=== PATIENT | female | born 1945 | race Caucasian/White ===

== ENCOUNTER 2017-05-04 12:29 | Emergency (ER) | payer BC, MEDICARE ==
--- NOTE | 2017-05-04 12:49 | Emergency Department Record ---
History of Present Illness - General Chief complaint: Hives Stated complaint: hives Time Seen by Provider: 05/04/17 12:40 Source: Patient Mode of Arrival: Ambulatory Limitations: No limitations - History of Present Illness Initial comments: The patient is here due to an itchy rash for 3 days. The rash is located all over. She denies any new medicines or foods but did start using a new deoderant and wore some new pants prior to the onset. She denies any LANEY, SOB, pain or any trouble swallowing. MD complaint: Rash Onset/Timin -: Days(s) Location: Generalized Severity: Moderate Severity scale (1-10): 2 Quality: Aching Consistency: Constant Treatments Prior to Arrival: Benadryl, OTC topical medication - Related Data Home Medications Medication Instructions Recorded Confirmed Last Taken Citalopram Hydrobromide [Celexa] 40 mg PO DAILY 04/14/15 05/04/17 1 Day Ago ~05/03/17 Furosemide [Lasix] 40 mg PO DAILY 04/14/15 05/04/17 1 Day Ago ~05/03/17 Insulin Glargine,Hum.rec.anlog 84 unit SQ QHS 04/14/15 05/04/17 1 Day Ago [Lantus] ~05/03/17 Insulin Lispro [Humalog] 15 unit SQ TID 04/14/15 05/04/17 1 Day Ago ~05/03/17 Lisinopril 20 mg PO DAILY 04/14/15 05/04/17 1 Day Ago ~05/03/17 Metformin HCl 1,000 mg PO BID 04/14/15 05/04/17 1 Day Ago ~05/03/17 Potassium Bicarbonate/Cit AC 10 meq PO DAILY 04/14/15 05/04/17 1 Day Ago [Effer-K 10 Meq Tablet Eff] ~05/03/17 Triamterene/Hydrochlorothiazid 1 each PO DAILY 04/14/15 05/04/17 1 Day Ago [Triamterene-Hctz 37.5-25 mg Tb] ~05/03/17 Allergies Allergy/AdvReac Type Severity Reaction Status Date / Time codeine Allergy Unknown PT UNSURE Verified 05/04/17 12:39 OF REACTION Travel Screening - Travel/Exposure Within Last 30 Days Have you traveled within the last 30 days?: No - Travel/Exposure Within Last Year Have you traveled outside the [place] in the last year?: No - Additonal Travel Details Have you been exposed to anyone with a communicable illness?: No - Travel Symptoms Symptom Screening: None Review of Systems Constitutional: Denies: Chills, Fever Eyes: Denies: Eye discharge ENT: Denies: Congestion Respiratory: Denies: Cough, Dyspnea Cardiovascular: Denies: Arrhythmia, Chest pain Past Medical History - SOCIAL HISTORY Smoking Status: Never smoker Alcohol Use: None Drug Use: None - RESPIRATORY Hx Respiratory Disorders: No - CARDIOVASCULAR Hx Cardio Disorders: Yes Hx Edema: Yes (BLE) Hx Hypertension: Yes Comment:: high cholesterol - NEURO Hx Neuro Disorders: Yes Hx Dizziness: Yes (Vertigo) - GI Hx GI Disorders: Yes Hx Irritable Bowel: Yes - Hx Genitourinary Disorders: No - ENDOCRINE Hx Endocrine Disorders: Yes Hx Diabetes: Yes (DM2) - MUSCULOSKELETAL Hx Musculoskeletal Disorders: No - PSYCH Hx Psych Problems: Yes Hx Depression: Yes (r/t husbands ) - HEMATOLOGY/ONCOLOGY Hx Hematology/Oncology Disorders: No Family Medical History Any Significant Family History?: Yes Hx Diabetes: Father, Brother/Sister, Grandparents Hx Heart Disease: Mother *Heart Comment: [place] Physical Exam - General General Appearance: Alert, Oriented x3, Cooperative, No acute distress - Head Head exam: Atraumatic, Normocephalic, Normal inspection - Eye Eye exam: Normal appearance, PERRL - ENT Throat exam: Normal inspection. negative: Tonsillar erythema, Tonsillar exudate - Neck Neck exam: Normal inspection, Full ROM. negative: Tenderness - Respiratory Respiratory exam: Normal lung sounds bilaterally. negative: Respiratory distress - Cardiovascular Cardiovascular Exam: Regular rate, Normal rhythm, Normal heart sounds - GI/Abdominal GI/Abdominal exam: Soft, Normal bowel sounds. negative: Tenderness - Extremities Extremities exam: Full ROM, Normal capillary refill. negative: Normal inspection, Calf tenderness, Pedal edema, Tenderness - Neurological Neurological exam: Alert. negative: Motor sensory deficit - Skin Skin exam: Rash, Urticaria (There is a diffuse mild urticarial rash to the body and extremities. The rash is nontender, now warm, and blanches.) Course Vital Signs 05/04/17 12:31 Temperature 97.7 F Pulse Rate 89 Respiratory 16 Rate Blood Pressure 167/89 Pulse Ox 96 - Reevaluation(s) Reevaluation #1: The patient is doing better at this time. Her itching is gone and she is ready for home. I explained to her that we will place the patient her on Benadryl along with Zantac and have her F/U with her PCP in 1-2 days. 05/04/17 13:10 Disposition Disposition: Discharge Clinical Impression: Urticaria Disposition: Home, Self-Care Condition: (1) Good Instructions: Urticaria (ED) Additional Instructions: Please continue the Benadryl 25 mg TID and Zantac 150 mg BID for 5 days. Please see your PCP for recheck in 1-2 days and return to the ER if worse. Forms: Patient Portal Access Time of Disposition: 13:12 Quality - Quality Measures Quality Measures: N/A - Blood Pressure Screening View Details: Yes Does Patient Have Any of the Following: No Blood Pressure Classification: Pre-Hypertensive BP Reading Systolic Measurement: 167 Diastolic Measurement: 89 Screening for High Blood Pressure: < Pre-Hypertensive BP, F/U Documented > [ G8950] Pre-Hypertensive Follow-up Interventions: Referral to alternative/primary care provider.
[2017-05-04] MEDS: DIPHENHYDRAMINE HCL IV 50 MG/ML VIAL IM ONE (12:52)
== END 2017-05-04 13:27 | disposition home or self-care (01) ==
LOC: ER 12:29
CPT/HCPCS: 96372; 99283; J1200

== ENCOUNTER 2017-06-23 19:53 | Observation (INO) | payer BC, MEDICARE ==
[2017-06-23] MEDS ORDERED: ONDANSETRON HCL IV 4 MG/2 ML VIAL IVP ONE (20:14)
[2017-06-23] MEDS ORDERED: PROMETHAZINE HCL 12.5 MG in 0.9 % SODIUM CHLORIDE 100ML 100 ML IVPB ONE (20:38)
[2017-06-23 20:47] LABS: BASO % 0.2 % (0-6); EOS % 0.8 % (0-6); GRAN % 77.5 % (47-80); HEMATOCRIT 45.3 % (35.0-47.0); HEMOGLOBIN 14.5 gm/dl (11.6-16.0); LYMPH % 16.6 % (16-45); MEAN CELL VOLUME 91.3 fl (81-97); MEAN CORPUSCULAR HEMOGLOBIN 29.2 pg (27-33); MEAN PLATELET VOLUME 12.8 fl (7.4-10.4); MONO % 4.9 % (0-9); PLATELET COUNT 234 K/uL (130-400); RED BLOOD COUNT 4.96 M/uL (3.80-5.40); RED CELL DISTRIBUTION WIDTH 13.5 % (11.5-14.5); WHITE BLOOD COUNT W/O DIFF 10.6 K/uL (4.2-12.2)
--- NOTE | 2017-06-23 20:48 | Emergency Department Record ---
History of Present Illness - General Chief Complaint: Dizziness Stated Complaint: DIZZINESS X3DAYS,NAUSEA Time Seen by Provider: 06/23/17 20:07 Source: Patient Mode of Arrival: Wheelchair Limitations: No limitations - History of Present Illness Initial Comments: pt c/o dizziness, room spinning and n/v. she states it feels similar to her previous vertigo but worse. she states she has to hang onto something to walk because she feels like she is going to fall. MD Complaint: Dizziness, Difficulty walking Onset/Timin -: Days(s) Description: Difficulty walking, Lightheadedness, Nausea, Off-balance, Sense of movement Severity: Moderate Improves With: Rest Associated Symptoms: Diaphoresis, Other - Alex Coma Scale Eye Response: (4) Open spontaneously Motor Response: (6) Obeys commands Verbal Response: (5) Oriented Mari Total: 15 - Symptoms of Stroke Symptoms of stroke: Dizziness, Unsteady When Walking, Vertigo - Related Data Allergies Allergy/AdvReac Type Severity Reaction Status Date / Time codeine Allergy Unknown PT UNSURE Verified 05/04/17 12:39 OF REACTION Travel Screening - Travel/Exposure Within Last 30 Days Have you traveled within the last 30 days?: No - Travel/Exposure Within Last Year Have you traveled outside the [place] in the last year?: No - Additonal Travel Details Have you been exposed to anyone with a communicable illness?: No - Travel Symptoms Symptom Screening: None Review of Systems Reviewed: No additional complaints except as noted below Constitutional: Reports: As per HPI. Denies: Chills, Fever, Malaise, Night sweats, Weakness, Weight change Eyes: Reports: As per HPI. Denies: Eye discharge, Eye pain, Photophobia, Vision change ENT: Reports: As per HPI. Denies: Congestion, Dental pain, Ear pain, Epistaxis , Hearing loss, Throat pain Respiratory: Reports: As per HPI. Denies: Cough, Dyspnea, Hemoptysis, Stridor, Wheezes Cardiovascular: Reports: As per HPI. Denies: Arrhythmia, Chest pain, Dyspnea on exertion, Edema, Murmurs, Orthopnea, Palpitations, Paroxysmal nocturnal dyspnea, Rheumatic Fever, Syncope Endocrine: Reports: As per HPI. Denies: Fatigue, Heat or cold intolerance, Polydipsia, Polyuria Gastrointestinal: Reports: As per HPI. Denies: Abdominal pain, Constipation, Diarrhea, Hematemesis, Hematochezia, Melena, Nausea, Vomiting Genitourinary: Reports: As per HPI. Denies: Abnormal menses, Discharge, Dyspareunia, Dysuria, Frequency, Hematuria, Incontinence, Retention, Urgency Musculoskeletal: Reports: As per HPI. Denies: Arthralgia, Back pain, Gout, Joint swelling, Myalgia, Neck pain Skin: Reports: As per HPI. Denies: Bruising, Change in color, Change in hair/ nails, Lesions, Pruritus, Rash Neurological: Reports: As per HPI. Denies: Abnormal gait, Confusion, Headache, Numbness, Paresthesias, Seizure, Tingling, Tremors, Vertigo, Weakness Psychiatric: Reports: As per HPI. Denies: Anxiety, Auditory hallucinations, Depression, Homicidal thoughts, Suicidal thoughts, Visual hallucinations Hematological/Lymphatic: Reports: As per HPI. Denies: Anemia, Blood Clots, Easy bleeding, Easy bruising, Swollen glands Past Medical History - SOCIAL HISTORY Smoking Status: Never smoker Alcohol Use: None Drug Use: None - RESPIRATORY Hx Respiratory Disorders: No - CARDIOVASCULAR Hx Cardio Disorders: Yes Hx Edema: Yes (BLE) Hx Hypertension: Yes Comment:: high cholesterol - NEURO Hx Neuro Disorders: Yes Hx Dizziness: Yes (Vertigo) - GI Hx GI Disorders: Yes Hx Irritable Bowel: Yes - Hx Genitourinary Disorders: No - ENDOCRINE Hx Endocrine Disorders: Yes Hx Diabetes: Yes (DM2) - MUSCULOSKELETAL Hx Musculoskeletal Disorders: No - PSYCH Hx Psych Problems: Yes Hx Depression: Yes (r/t husbands ) - HEMATOLOGY/ONCOLOGY Hx Hematology/Oncology Disorders: No Family Medical History Any Significant Family History?: No Hx Diabetes: Father, Brother/Sister, Grandparents Hx Heart Disease: Mother *Heart Comment: [place] Physical Exam - General General Appearance: Alert, Oriented x3, Cooperative, Mild distress - Head Head exam: Normal inspection - Eye Eye exam: Normal appearance, PERRL, EOMI Pupils: Normal accommodation - ENT ENT exam: Normal exam, Mucous membranes moist, Normal external ear exam, Normal orophraynx Ear exam: Normal external inspection. negative: External canal tenderness Nasal Exam: Normal inspection. negative: Discharge, Sinus tenderness Mouth exam: Normal external inspection, Tongue normal Teeth exam: Normal inspection. negative: Dental caries Throat exam: Normal inspection. negative: Tonsillar erythema, Tonsillar exudate - Neck Neck exam: Normal inspection, Full ROM. negative: Tenderness - Respiratory Respiratory exam: Normal lung sounds bilaterally. negative: Respiratory distress - Cardiovascular Cardiovascular Exam: Regular rate, Normal rhythm, Normal heart sounds - GI/Abdominal GI/Abdominal exam: Soft, Normal bowel sounds. negative: Tenderness - Rectal Rectal exam: Deferred - exam: Deferred - Extremities Extremities exam: Normal inspection, Full ROM, Normal capillary refill. negative: Tenderness - Back Back exam: Reports: Normal inspection, Full ROM. Denies: Muscle spasm, Rash noted, Tenderness - Neurological Neurological exam: Alert, CN II-XII intact, Normal gait, Oriented X3 - Psychiatric Psychiatric exam: Normal affect, Normal mood - Skin Skin exam: Dry, Intact, Normal color, Warm Course Vital Signs 06/23/17 20:03 Temperature 99.0 F Pulse Rate 91 H Respiratory 24 Rate Pulse Ox 90 L Medical Decision Making - Lab Data Result diagrams: 06/23/17 20:10 06/23/17 20:10 Disposition Disposition: Admit Clinical Impression: Vertigo UTI (urinary tract infection) Qualifiers: Urinary tract infection type: acute cystitis Hematuria presence: without hematuria Qualified Code(s): N30.00 - Acute cystitis without hematuria Hyperglycemia due to type 2 diabetes mellitus Qualifiers: Diabetes mellitus fci insulin use: with recruiting and selection consultant use Qualified Code(s): E11.65 - Type 2 diabetes mellitus with hyperglycemia; Z79.4 - buckshot swage operator (current ) use of insulin; Z79.4 - alf (current) use of insulin; Z79.4 - buckshot swage operator (current) use of insulin; Z79.4 - alf (current) use of insulin Disposition: Still a Patient at [facility] Decision to Admit: Admit from ER Decision to Admit Date: 06/24/17 Decision to Admit Time: 00:48 Forms: Patient Portal Access Quality - Quality Measures Quality Measures: N/A - Blood Pressure Screening Does Patient Have Any of the Following: Active Dx of HTN Blood Pressure Classification: Pre-Hypertensive BP Reading Systolic Measurement: 166 Diastolic Measurement: 82 Screening for High Blood Pressure: < First Hypertensive BP, F/U Documented > [ G8950] First Hypertensive Follow-up Interventions: Follow-up with rescreen GT 1 day and LT 4 weeks.
[2017-06-23 21:04] LABS: BLOOD UREA NITROGEN 15 mg/dL (8-23); CREATININE 0.9 mg/dL (0.5-0.9); EST GLOMERULAR FILTRATION RATE > 60 mL/min; GLUCOSE,RANDOM 404 mg/dL (74-109)
[2017-06-23 21:07] LABS: TROPONIN I < 0.30 ng/mL (0.00-0.300)
[2017-06-23] MEDS ORDERED: 0.9 % SODIUM CHLORIDE 1,000 ML BAG IV ONE (22:03)
[2017-06-23] MEDS ORDERED: HUMULIN R 100 UNIT/ML VIAL SQ ONE ×2 (22:03→23:12)
[2017-06-23 22:21] LABS: URINE APPEARANCE CLEAR; URINE BILIRUBIN NEGATIVE (NEGATIVE); URINE BLOOD NEGATIVE (NEGATIVE); URINE COLOR YELLOW; URINE KETONE TRACE (NEGATIVE); URINE LEUKOCYTE ESTERASE NEGATIVE (NEGATIVE); URINE NITRITE POSITIVE (NEGATIVE); URINE PROTEIN TRACE (NEGATIVE); URINE UROBILINOGEN 0.2 E.U./dL (0.20 - 1.00)
[2017-06-23 22:23] LABS: URINE GLUCOSE (UA) >=1000 mg/dL (NEGATIVE)
[2017-06-23 22:27] LABS: URINE BACTERIA 2+; URINE EPITHELIAL CELLS 0 - 2 (FEW); URINE RBC 0 - 2 (NONE SEEN)
[2017-06-23] MEDS ORDERED: MECLIZINE 25 MG TABLET PO ONE (22:38)
[2017-06-23] MEDS ORDERED: CIPROFLOXACIN LACTATE/D5W 400 MG/200 ML BAG IVPB ONE (22:41)
[2017-06-24] MEDS ORDERED: MECLIZINE 25 MG TABLET PO PRN (01:52)
[2017-06-24] MEDS ORDERED: ACETAMINOPHEN 500 MG TABLET PO PRN (01:52)
[2017-06-24] MEDS ORDERED: FUROSEMIDE 40 MG TABLET PO SCH (01:52)
[2017-06-24] MEDS ORDERED: CIPROFLOXACIN LACTATE/D5W 400 MG/200 ML BAG IVPB SCH (01:52)
--- NOTE | 2017-06-24 06:28 | History & Physical ---
History of Present Illness - Date of Service Date of Service for History & Physical: 06/24/17 - History of Present Illness Admitting Diagnosis: intractable vertigo, vomiting, uti, hyperglycemia w dm History of Present Illness: Ms. Cottrell is 71 y/o female who presents with dizziness, nausea and vomiting which began on Thursday afternoon while she was at home. The patient says the room felt it was spinning but she did not have blurring of vision, headache, fever, chills, diaphoresis, chest pain or loss of consciousness. She is a diabetic and takes Lantus 90 units QHS, Lispro 15 units TIDAC and Metformin 1000mg BID. She did not take her medication over the last 3 days due to the ongoing vomiting. Yesterday she had 3-4 loose non-bloody, watery bowel movements and her dizziness got worse so she decided to come into the ED. On arrival to the ED the patient was noted to be hyperglycemic and to have urinary tract infection. She was started on insulin and empiric IV antibiotics. ECG showed normal sinus rhythm w/o acute ST-T wave abnormalities and CT head w/ o contrast showed small vessel ischemic changes but no acute infarct. On examination this morning the patient reports improvement in symptoms witho no diarrhea, or dizziness. Travel Screening - Travel/Exposure Within Last 30 Days Have you traveled within the last 30 days?: No - Travel/Exposure Within Last Year Have you traveled outside the [place] in the last year?: No - Additonal Travel Details Have you been exposed to anyone with a communicable illness?: No - Travel Symptoms Symptom Screening: Vomiting Review of Systems Constitutional: Reports: As per HPI. Denies: Chills, Fever, Malaise, Night sweats, Weakness, Weight change Eyes: Reports: As per HPI. Denies: Eye discharge, Eye pain, Photophobia, Vision change ENT: Reports: As per HPI. Denies: Congestion, Dental pain, Ear pain, Epistaxis , Hearing loss, Throat pain Respiratory: Reports: As per HPI. Denies: Cough, Dyspnea, Hemoptysis, Stridor, Wheezes Cardiovascular: Reports: As per HPI. Denies: Arrhythmia, Chest pain, Dyspnea on exertion, Edema, Murmurs, Orthopnea, Palpitations, Paroxysmal nocturnal dyspnea, Rheumatic Fever, Syncope Endocrine: Reports: As per HPI. Denies: Fatigue, Heat or cold intolerance, Polydipsia, Polyuria Gastrointestinal: Reports: As per HPI, Diarrhea (3-4 episodes yesterday prior to admission. ), Nausea, Vomiting. Denies: Abdominal pain, Constipation, Hematemesis, Hematochezia, Melena Genitourinary: Reports: As per HPI. Denies: Abnormal menses, Discharge, Dyspareunia, Dysuria, Frequency, Hematuria, Incontinence, Retention, Urgency Musculoskeletal: Reports: As per HPI. Denies: Arthralgia, Back pain, Gout, Joint swelling, Myalgia, Neck pain Skin: Reports: As per HPI. Denies: Bruising, Change in color, Change in hair/ nails, Lesions, Pruritus, Rash Neurological: Reports: As per HPI, Vertigo (pt reports unsteady gait over the past 3 days. ). Denies: Abnormal gait, Confusion, Headache, Numbness, Paresthesias, Seizure, Tingling, Tremors, Weakness Psychiatric: Reports: As per HPI. Denies: Anxiety, Auditory hallucinations, Depression, Homicidal thoughts, Suicidal thoughts, Visual hallucinations Hematological/Lymphatic: Reports: As per HPI. Denies: Anemia, Blood Clots, Easy bleeding, Easy bruising, Swollen glands Past Medical History - SOCIAL HISTORY Smoking Status: Never smoker Alcohol Use: None Drug Use: None - RESPIRATORY Hx Respiratory Disorders: No - CARDIOVASCULAR Hx Cardio Disorders: Yes Hx Edema: Yes (BLE) Hx Hypertension: Yes Comment:: high cholesterol - NEURO Hx Neuro Disorders: Yes Hx Dizziness: Yes (Vertigo) - GI Hx GI Disorders: Yes Hx Irritable Bowel: Yes - Hx Genitourinary Disorders: No - ENDOCRINE Hx Endocrine Disorders: Yes Hx Diabetes: Yes (DM2) - MUSCULOSKELETAL Hx Musculoskeletal Disorders: No - PSYCH Hx Psych Problems: Yes Hx Depression: Yes (r/t husbands ) - HEMATOLOGY/ONCOLOGY Hx Hematology/Oncology Disorders: No Family Medical History Any Significant Family History?: No Hx Diabetes: Father, Brother/Sister, Grandparents Hx Heart Disease: Mother *Heart Comment: [place] [facility] Meds/Allergies - Allergies Allergies: Allergies Allergy/AdvReac Type Severity Reaction Status Date / Time codeine Allergy Unknown PT UNSURE Verified 05/04/17 12:39 OF REACTION - Active Medications Active Medications: Current Medications Acetaminophen (Tylenol 500mg Tab) 1,000 mg PO Q6H PRN PRN Reason: PAIN/TEMP Citalopram Hydrobromide (Celexa) 40 mg PO DAILY [facility] Furosemide (Lasix) 40 mg PO Q48H [facility] Sodium Chloride () 1,000 mls @ 100 mls/hr IV .Q10H PRN PRN Reason: LARGE VOLUME IV Ciprofloxacin Lactate (Cipro) 400 mg in 200 mls @ 200 mls/hr IVPB Q12H [facility] Stop: 06/29/17 01:53 Last Admin: 06/24/17 01:58 Dose: Not Given Insulin Aspart (Novolog Flexpen) 15 unit SQ TID [facility] Insulin Detemir (Levemir Flextouch) 84 unit SQ QHS [facility] Lisinopril (Zestril) 20 mg PO DAILY [facility] Meclizine HCl (Antivert) 25 mg PO Q8H PRN PRN Reason: Dizziness Metformin HCl (Glucophage Ir) 1,000 mg PO BID [facility] Non-Formulary Medication (Potassium Bicarbonate/Cit Ac [Effer-K 10 Meq Tablet Eff]) 10 meq PO DAILY [facility] Triamterene/HCTZ (Dyazide) 1 udcap PO DAILY [facility] Physical Exam - Vital Signs Vital Signs: Vital Signs - Last 24 Hrs Temp Pulse Resp BP Pulse Ox 06/24/17 02:00 98.3 F 75 18 158/90 93 L - General General Appearance: Alert, Oriented x3, Cooperative, Mild distress Limitations: No limitations - Head Head exam: Normal inspection - Eye Eye exam: Normal appearance, PERRL, EOMI Pupils: Normal accommodation - ENT ENT exam: Normal exam, Mucous membranes moist, Normal external ear exam, Normal orophraynx Ear exam: Normal external inspection. negative: External canal tenderness Nasal Exam: Normal inspection. negative: Discharge, Sinus tenderness Mouth exam: Normal external inspection, Tongue normal Teeth exam: Normal inspection. negative: Dental caries Throat exam: Normal inspection. negative: Tonsillar erythema, Tonsillar exudate - Neck Neck exam: Normal inspection, Full ROM. negative: Tenderness - Respiratory Respiratory exam: Normal lung sounds bilaterally. negative: Respiratory distress - Cardiovascular Cardiovascular Exam: Regular rate, Normal rhythm, Normal heart sounds, S3 Peripheral Pulses: 2+: Radial (R), Radial (L), Dorsalis Pedis (R), Dorsalis Pedis (L) - GI/Abdominal GI/Abdominal exam: Soft, Normal bowel sounds. negative: Tenderness - Rectal Rectal exam: Deferred - exam: Deferred - Extremities Extremities exam: Normal inspection, Full ROM, Normal capillary refill. negative: Tenderness - Back Back exam: Reports: Normal inspection, Full ROM. Denies: Muscle spasm, Rash noted, Tenderness - Neurological Neurological exam: Alert, CN II-XII intact, Normal gait, Oriented X3 - Psychiatric Psychiatric exam: Normal affect, Normal mood - Skin Skin exam: Dry, Intact, Normal color, Warm Results - Labs Result Diagrams: 06/23/17 20:10 06/23/17 20:10 VTE H&P Assessment - Risk for VTE Risk for VTE: Yes Risk Level: Moderate Risk Assessment Date: 06/24/17 Risk Assessment Time: 10:18 VTE Orders Placed or Will Be Placed: Yes Plan - Detailed Diagnosis and Plan (1) Dizziness, nonspecific Plan: - Patient presents with dizziness, N/V, diarrhea. -resolved. Probably multifactorial 2/2 medication,infection,hyperglycemia. - CT head w/o contrast: no acute process, ECG: NSR, Qtc is mildly prolonged > 485 - received Nacl 0.9% 1 liter bolus in ED cont fluid repletion with Nacl 0.9% @ 100mL/hr - will d/c antivert, resume BP medications with holding parameters and continue to monitor on telemetry. - Fall precautions/ambulate with assistance Current Visit: Yes Status: Acute Base Code: R42 - DIZZINESS AND GIDDINESS (2) UTI (urinary tract infection) Plan: - UA: + nitrites, no leukocytes, trace ketones, trace proteins - pt on Ciprofloxacin 400mg Q12H, UCX pending. Change to PO medication. Current Visit: Yes Status: Acute Qualifiers: Urinary tract infection type: acute cystitis Hematuria presence: without hematuria Qualified Code(s): N30.00 - Acute cystitis without hematuria Base Code: N39.0 - URINARY TRACT INFECTION, SITE NOT SPECIFIED (3) Hypertension Plan: -current BP 148/86 - pt on Diazyde, Lasix 20mg QD and Lisinopril 20mg at home. - will hold Diayzide for now and increase Lisinopril to 40mg, cont Lasix 20mg. Current Visit: Yes Status: Acute Base Code: I10 - ESSENTIAL (PRIMARY) HYPERTENSION (4) Hyperglycemia due to type 2 diabetes mellitus Plan: - CBG >300 on admission, CBG 213, 2/2 non-compliance and infection. - pt got 7 units regular insulin in the ED, resume home doses of Levemir 84 units, Aspart 15 units TIDAC and Metformin 100mg BID - cont CBG TIDAC, diabetic diet. - foot examination: no ulcers, cruising or skin breakdown. 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 Anticipate d/ c this afternoon w/ home abx if symptoms improve.
--- NOTE | 2017-06-24 07:28 | CT SCAN REPORT ---
EXAM: CT OF THE BRAIN WITHOUT CONTRAST HISTORY: MENTAL STATUS CHANGE. TECHNIQUE: Sequential axial images were obtained from the foramen magnum to the vertex without contrast administration. Comparison: 06/10/13. FINDINGS: There is periventricular small vessel ischemic change. There is mild dilatation of the occipital horns. No large territorial infarct, hemorrhage, mass effect, or midline shift. The orbits, paranasal sinuses and mastoid air cells are normal. No depressed skull fracture. IMPRESSION: PERIVENTRICULAR SMALL VESSEL ISCHEMIC CHANGE. NO LARGE TERRITORIAL INFARCT, HEMORRHAGE, MASS EFFECT OR MIDLINE SHIFT. JOB NUMBER: [id number] [facility]
[2017-06-24] MEDS ORDERED: LISINOPRIL 20 MG TABLET PO SCH (10:00)
[2017-06-24] MEDS ORDERED: [UNRECOGNIZED DRUG - OTHER] PO SCH (10:00)
[2017-06-24] MEDS ORDERED: Non-Formulary MISC (Citalopram Hydrobromide [Celexa] 40 MG) PO SCH (10:00)
[2017-06-24] MEDS ORDERED: INSULIN LISPRO 15 UNIT SQ SCH (10:00)
[2017-06-24] MEDS: METFORMIN 500 MG TABLET PO SCH ×2 (10:17→21:29)
[2017-06-24] MEDS: CITALOPRAM 20 MG TABLET PO SCH (10:18)
[2017-06-24] MEDS: TRIAMTERENE 37.5/HCTZ 25 CAPSULE PO SCH (10:18)
[2017-06-24] MEDS: FUROSEMIDE 40 MG TABLET PO SCH (10:18)
[2017-06-24] MEDS: CIPROFLOXACIN LACTATE/D5W 400 MG/200 ML BAG IVPB SCH ×2 (10:19→21:30)
[2017-06-24] MEDS: NOVOLOG FLEXPEN (INSULIN ASPART) 100 UNITS/ML SQ SCH ×3 (10:19→17:51)
[2017-06-24] MEDS: POTASSIUM CHLORIDE 10 MEQ TAB PO SCH (10:19)
[2017-06-24] MEDS: LISINOPRIL 20 MG TABLET PO SCH (11:06)
[2017-06-24] MEDS: 0.9 % SODIUM CHLORIDE 1000ML 1,000 ML IV PRN ×2 (14:19→23:48)
[2017-06-24] MEDS ORDERED: LEVEMIR FLEXTOUCH 100 UNIT/ML INSULIN PEN SQ SCH (22:00)
[2017-06-24] MEDS ORDERED: INSULIN GLARGINE SQ SCH (22:00)
[2017-06-25] MEDS ORDERED: LEVEMIR FLEXTOUCH 100 UNIT/ML INSULIN PEN SQ SCH (06:01)
[2017-06-25] MEDS: NOVOLOG FLEXPEN (INSULIN ASPART) 100 UNITS/ML SQ SCH ×3 (08:00→17:14)
--- NOTE | 2017-06-25 09:08 | Discharge Summary ---
Providers Date of admission: 06/24/17 01:44 Attending physician: Mono Barrett Primary care physician: Mono Barrett Physical Exam - Vital Signs Vital Signs: Vital Signs - Last 24 Hrs Temp Pulse Pulse Resp BP Pulse Ox 06/25/17 05:52 98.4 F 74 74 20 124/74 93 L 06/24/17 19:58 98.4 F 86 86 20 144/80 97 06/24/17 18:48 98.9 F 80 16 140/68 95 06/24/17 10:00 98.7 F 78 18 158/81 92 L 06/24/17 09:54 70 18 - General General Appearance: Alert, Oriented x3, Cooperative, Mild distress Limitations: No limitations - Head Head exam: Normal inspection - Eye Eye exam: Normal appearance, PERRL, EOMI Pupils: Normal accommodation - ENT ENT exam: Normal exam, Mucous membranes moist, Normal external ear exam, Normal orophraynx Ear exam: Normal external inspection. negative: External canal tenderness Nasal Exam: Normal inspection. negative: Discharge, Sinus tenderness Mouth exam: Normal external inspection, Tongue normal Teeth exam: Normal inspection. negative: Dental caries Throat exam: Normal inspection. negative: Tonsillar erythema, Tonsillar exudate - Neck Neck exam: Normal inspection, Full ROM. negative: Tenderness - Respiratory Respiratory exam: Normal lung sounds bilaterally. negative: Respiratory distress - Cardiovascular Cardiovascular Exam: Regular rate, Normal rhythm, Normal heart sounds, S3 Peripheral Pulses: 2+: Radial (R), Radial (L), Dorsalis Pedis (R), Dorsalis Pedis (L) - GI/Abdominal GI/Abdominal exam: Soft, Normal bowel sounds. negative: Tenderness - Rectal Rectal exam: Deferred - exam: Deferred - Extremities Extremities exam: Normal inspection, Full ROM, Normal capillary refill. negative: Tenderness - Back Back exam: Reports: Normal inspection, Full ROM. Denies: Muscle spasm, Rash noted, Tenderness - Neurological Neurological exam: Alert, CN II-XII intact, Normal gait, Oriented X3 - Psychiatric Psychiatric exam: Normal affect, Normal mood - Skin Skin exam: Dry, Intact, Normal color, Warm Hospitalization - Hospitalization Admission Diagnosis: intractable vertigo, vomiting, uti, hyperglycemia w dm - Problem List/Discharge Diagnosis (1) Dizziness, nonspecific Current Visit: Yes Status: Acute Base Code: R42 - DIZZINESS AND GIDDINESS (2) UTI (urinary tract infection) Current Visit: Yes Status: Acute Discharge Diagnosis: Urinary tract infection type: acute cystitis Hematuria presence: without hematuria Qualified Code(s): N30.00 - Acute cystitis without hematuria Base Code: N39.0 - URINARY TRACT INFECTION, SITE NOT SPECIFIED (3) Hypertension Current Visit: Yes Status: Acute Base Code: I10 - ESSENTIAL (PRIMARY) HYPERTENSION (4) Hyperglycemia due to type 2 diabetes mellitus Current Visit: Yes Status: Acute Discharge Diagnosis: Diabetes mellitus tank terminal gauger insulin use: with tank terminal gauger use Qualified Code( s): E11.65 - Type 2 diabetes mellitus with hyperglycemia; Z79.4 - regional intermodal truck driver ( current) use of insulin; Z79.4 - regional intermodal truck driver (current) use of insulin; Z79.4 - regional intermodal truck driver (current) use of insulin; Z79.4 - regional intermodal truck driver (current) use of insulin Base Code: E11.65 - TYPE 2 DIABETES MELLITUS WITH HYPERGLYCEMIA (5) Full code status Current Visit: Yes Status: Acute Base Code: Z78.9 - OTHER SPECIFIED HEALTH STATUS - Disposition Pt's condition has improved significantly over the past 12 hours. Anticipate d/ c this afternoon w/ home abx if symptoms improve. - Hospitalization Course Abnormal Labs: Abnormal Lab Results 06/24/17 06/24/17 06/24/17 Range/Units 07:00 11:58 17:00 POC Glucose 213 H 440 H 361 H (70-110) mg/dL 06/24/17 06/25/17 Range/Units 21:41 07:31 POC Glucose 354 H 342 H (70-110) mg/dL Discharge Medications - Discharge Medications Home Medications: Ambulatory Orders Citalopram Hydrobromide [Celexa] 40 mg PO DAILY 04/14/15 [Last Taken 1 Day Ago ~ 05/03/17] Furosemide [Lasix] 40 mg PO Q48H 04/14/15 [Last Taken 1 Day Ago ~05/03/17] Insulin Glargine,Hum.rec.anlog [Lantus] 84 unit SQ QHS 04/14/15 [Last Taken 1 Day Ago ~05/03/17] Insulin Lispro [Humalog] 15 unit SQ TID 04/14/15 [Last Taken 1 Day Ago ~05/03/17 ] Lisinopril 20 mg PO DAILY 04/14/15 [Last Taken 1 Day Ago ~05/03/17] Metformin HCl 1,000 mg PO BID 04/14/15 [Last Taken 1 Day Ago ~05/03/17] Potassium Bicarbonate/Cit AC [Effer-K 10 Meq Tablet Eff] 10 meq PO DAILY [Last Taken 1 Day Ago ~05/03/17] Triamterene/Hydrochlorothiazid [Triamterene-Hctz 37.5-25 mg Tb] 1 each PO DAILY 04/14/15 [Last Taken 1 Day Ago ~05/03/17] Discharge Plan - Discharge Instructions Quality Measures - Quality Measures Quality Measures: Advance Directives, Documentation of Current Medications in Medical Record, Elder Maltreatment Screen and Follow-Up Plan, Screening for High Blood Pressure and F/U Documented - Current Medications Quality Measure: Measure #130: Documentation of Current Medications - Blood Pressure Screening Quality Measure: Screening for High Blood Pressure and Follow-Up Documented Blood Pressure Classification: Pre-Hypertensive BP Reading Systolic Measurement: 124 Diastolic Measurement: 74 Screening for High Blood Pressure: < Pre-Hypertensive BP, F/U Documented > [ [id number]] - Advance Directives Quality Measure: Measure #47: Care Plan Advance Directives Established: No Advance Directives Information Provided To Patient: Yes Advance Directives on File: No Living Will: No Power of Field Marketing Representative: No - Elder Abuse Suspicion Index Screening: Elder Abuse Suspicion Index Screening Rely on people for bathing, dressing, shopping, banking, etc: No Prevented from getting food, clothes, medication, etc: No Made to feel shamed or threatened by someone: No Feel afraid, touched in ways not wanted or hurt physically: No Poor eye contact, withdrawn, malnourished, cuts or bruises: No Screening Result: Negative result EASI Reference Information: Heather MARTINI, Tim C, Riaz D, Diogo Hastings.Development and validation of a tool to assist physicians identification of elder abuse: The Elder Abuse Suspicion Index (EASI ). Journal of Elder Abuse and Neglect, 2008; 20 (3): 276-300. - Elder Maltreatment Screen Quality Measures: Elder Maltreatment Screen and Follow-Up Plan Elder Maltreatment Screen: <Negative, No Follow-Up Plan Required> [G8734]
[2017-06-25] MEDS: TRIAMTERENE 37.5/HCTZ 25 CAPSULE PO SCH (09:45)
[2017-06-25] MEDS: CITALOPRAM 20 MG TABLET PO SCH (09:46)
[2017-06-25] MEDS: METFORMIN 500 MG TABLET PO SCH ×2 (09:46→22:13)
[2017-06-25] MEDS: CIPROFLOXACIN LACTATE/D5W 400 MG/200 ML BAG IVPB SCH (09:46)
[2017-06-25] MEDS: POTASSIUM CHLORIDE 10 MEQ TAB PO SCH (09:46)
[2017-06-25] MEDS: LISINOPRIL 20 MG TABLET PO SCH (09:46)
[2017-06-25] MEDS: 0.9 % SODIUM CHLORIDE 1000ML 1,000 ML IV PRN (13:00)
--- NOTE | 2017-06-25 20:07 | Physician Progress Note ---
Subjective - Date Date of Physician Progress Note: 06/25/17 - Subjective Subjective Comment: Patient awake, alert and without complaint this afternoon. She says she feels better and symptoms have resolved. Objective - Vital Signs Vital Signs: Vital Signs - Last 24 Hrs Temp Pulse Pulse Resp BP Pulse Ox 06/25/17 18:55 99.2 F 79 18 151/78 95 06/25/17 14:00 98.1 F 76 18 158/89 97 06/25/17 10:30 76 18 06/25/17 09:08 98.9 F 79 18 138/69 97 06/25/17 05:52 98.4 F 74 74 20 124/74 93 L - General General Appearance: Alert, Oriented x3, Cooperative, Mild distress Limitations: No limitations - Head Head exam: Normal inspection - Eye Eye exam: Normal appearance, PERRL, EOMI Pupils: Normal accommodation - ENT ENT exam: Normal exam, Mucous membranes moist, Normal external ear exam, Normal orophraynx Ear exam: Normal external inspection. negative: External canal tenderness Nasal Exam: Normal inspection. negative: Discharge, Sinus tenderness Mouth exam: Normal external inspection, Tongue normal Teeth exam: Normal inspection. negative: Dental caries Throat exam: Normal inspection. negative: Tonsillar erythema, Tonsillar exudate - Neck Neck exam: Normal inspection, Full ROM. negative: Tenderness - Respiratory Respiratory exam: Normal lung sounds bilaterally. negative: Respiratory distress - Cardiovascular Cardiovascular Exam: Regular rate, Normal rhythm, Normal heart sounds, S3 Peripheral Pulses: 2+: Radial (R), Radial (L), Dorsalis Pedis (R), Dorsalis Pedis (L) - GI/Abdominal GI/Abdominal exam: Soft, Normal bowel sounds. negative: Tenderness - Rectal Rectal exam: Deferred - exam: Deferred - Extremities Extremities exam: Normal inspection, Full ROM, Normal capillary refill. negative: Tenderness - Back Back exam: Reports: Normal inspection, Full ROM. Denies: Muscle spasm, Rash noted, Tenderness - Neurological Neurological exam: Alert, CN II-XII intact, Normal gait, Oriented X3 - Psychiatric Psychiatric exam: Normal affect, Normal mood - Skin Skin exam: Dry, Intact, Normal color, Warm Assessment and Plan - Assessment and Plan (1) Dizziness, nonspecific Plan: - Patient presents with dizziness, N/V, diarrhea. -resolved. Probably multifactorial 2/2 medication,infection,hyperglycemia. - CT head w/o contrast: no acute process, ECG: NSR, Qtc is mildly prolonged > 485 - D/C Nacl 0.9% @ 100mL/hr as pt on Po meds. - will d/c antivert, resume BP medications with holding parameters and continue to monitor on telemetry. - Fall precautions/ambulate with assistance Current Visit: Yes Status: Acute Base Code: R42 - DIZZINESS AND GIDDINESS (2) UTI (urinary tract infection) Plan: - UA: + nitrites, no leukocytes, trace ketones, trace proteins - pt on Ciprofloxacin 400mg Q12H, UCX pending. Change to PO today and continue for 2 more days. Current Visit: Yes Status: Acute Qualifiers: Urinary tract infection type: acute cystitis Hematuria presence: without hematuria Qualified Code(s): N30.00 - Acute cystitis without hematuria Base Code: N39.0 - URINARY TRACT INFECTION, SITE NOT SPECIFIED (3) Hypertension Plan: - pt on Diazyde, Lasix 20mg QD and Lisinopril 20mg at home. - will hold Diayzide for now and increase Lisinopril to 40mg, cont Lasix 20mg. Current Visit: Yes Status: Acute Base Code: I10 - ESSENTIAL (PRIMARY) HYPERTENSION (4) Hyperglycemia due to type 2 diabetes mellitus Plan: - CBG >300 on admission, CBG 213, --> 300 recently 2/2 non-compliance and infection. - increased Levemir 84 units to 90 units Aspart 15 units TIDAC to 18 units and Metformin 1000mg BID - cont CBG TIDAC, diabetic diet. Pt has not been compliant and has been getting food from family that are not consistent with ADA diet. - foot examination: no ulcers, cruising or skin breakdown. Current Visit: Yes Status: Acute Qualifiers: Diabetes mellitus terminal gauger supervisor insulin use: with [facility] use Qualified Code( s): E11.65 - Type 2 diabetes mellitus with hyperglycemia; Z79.4 - technician terminal and repeater ( current) use of insulin; Z79.4 - jail (current) use of insulin; Z79.4 - jail (current) use of insulin; Z79.4 - jail (current) use of insulin Base Code: E11.65 - TYPE 2 DIABETES MELLITUS WITH HYPERGLYCEMIA (5) Full code status Plan: FULL CODE Current Visit: Yes Status: Acute Base Code: Z78.9 - OTHER SPECIFIED HEALTH STATUS - Disposition Disposition: D/C tomorrow if CBG improves tonight and in the morning. The patient's diet has been changed as per dietary. Results - Labs Result Diagrams: 06/23/17 20:10 06/23/17 20:10 Labs Last 24 Hours: Laboratory Results - last 24 hr 06/24/17 06/24/17 06/25/17 17:00 21:41 07:31 POC Glucose 361 H 354 H 342 H 06/25/17 06/25/17 11:35 17:00 POC Glucose 404 H 316 H DVT/PE Assessment - Risk for VTE Risk for VTE: No Risk Level: Moderate Risk Assessment Date: 06/24/17 Risk Assessment Time: 10:18 VTE Orders Placed or Will Be Placed: Yes - Active Medicaitons Current Medications: Current Medications Acetaminophen (Tylenol 500mg Tab) 1,000 mg PO Q6H PRN PRN Reason: PAIN/TEMP Last Admin: 06/25/17 07:59 Dose: 1,000 mg Citalopram Hydrobromide (Celexa) [address] [facility] Last Admin: 06/25/17 09:46 Dose: 40 mg Furosemide (Lasix) [address] [facility] Last Admin: 06/24/17 10:18 Dose: 40 mg Sodium Chloride () 1,000 mls @ 100 mls/hr IV .Q10H PRN PRN Reason: LARGE VOLUME IV Last Admin: 06/25/17 13:00 Dose: 100 mls/hr Ciprofloxacin Lactate (Cipro) 400 mg in 200 mls @ 200 mls/hr IVPB Q12HR [facility] Stop: 06/29/17 01:53 Last Infusion: 06/25/17 12:59 Dose: Infused Insulin Aspart (Novolog Flexpen) [address] [facility] Last Admin: 06/25/17 17:14 Dose: 18 unit Insulin Detemir (Levemir Flextouch) [address] [facility] Lisinopril (Zestril) [address] [facility] Last Admin: 06/25/17 09:46 Dose: 40 mg Meclizine HCl (Antivert) 25 mg PO Q8H PRN PRN Reason: Dizziness Metformin HCl (Glucophage Ir) 1,000 mg PO BID [facility] Last Admin: 06/25/17 09:46 Dose: 1,000 mg Potassium Chloride (Klor-Con) 10 meq PO DAILY [facility] Last Admin: 06/25/17 09:46 Dose: 10 meq Triamterene/HCTZ (Dyazide) 1 udcap PO DAILY [facility] Last Admin: 06/25/17 09:45 Dose: 1 udcap AMI Plan - Labs Result Diagrams: 06/23/17 20:10 06/23/17 20:10
[2017-06-25] MEDS: CIPROFLOXACIN HCL 500 MG TABLET PO SCH (22:12)
[2017-06-26] MEDS: 0.9 % SODIUM CHLORIDE 1000ML 1,000 ML IV PRN (00:16)
[2017-06-26 07:00] LABS: BASO % 0.3 % (0-6); EOS % 3.7 % (0-6); GRAN % 58.1 % (47-80); HEMATOCRIT 38.6 % (35.0-47.0); HEMOGLOBIN 12.3 gm/dl (11.6-16.0); LYMPH % 31.3 % (16-45); MEAN CELL VOLUME 91.5 fl (81-97); MEAN CORPUSCULAR HEMOGLOBIN 29.1 pg (27-33); MEAN CORPUSCULAR HGB CONC 31.9 g/dl (32-36); MEAN PLATELET VOLUME 12.8 fl (7.4-10.4); MONO % 6.6 % (0-9); PLATELET COUNT 167 K/uL (130-400); RED BLOOD COUNT 4.22 M/uL (3.80-5.40); RED CELL DISTRIBUTION WIDTH 13.1 % (11.5-14.5); WHITE BLOOD COUNT W/O DIFF 8.6 K/uL (4.2-12.2)
[2017-06-26 07:41] LABS: BLOOD UREA NITROGEN 16 mg/dL (8-23); CREATININE 0.7 mg/dL (0.5-0.9); EST GLOMERULAR FILTRATION RATE > 60 mL/min; GLUCOSE,RANDOM 66 mg/dL (74-109)
[2017-06-26] MEDS: NOVOLOG FLEXPEN (INSULIN ASPART) 100 UNITS/ML SQ SCH (08:20)
[2017-06-26] MEDS ORDERED: LEVEMIR FLEXTOUCH 100 UNIT/ML INSULIN PEN SQ SCH ×2 (08:40→22:00)
[2017-06-26] MEDS ORDERED: NOVOLOG FLEXPEN (INSULIN ASPART) 100 UNITS/ML SQ SCH (08:40)
--- NOTE | 2017-06-26 10:22 | Discharge Summary ---
Providers Discharge Summary Date: 06/26/17 Date of admission: 06/24/17 01:44 Attending physician: Mono Barrett Primary care physician: Mono Barrett Physical Exam - Vital Signs Vital Signs: Vital Signs - Last 24 Hrs Temp Pulse Pulse Resp BP Pulse Ox 06/26/17 10:00 98.3 F 81 18 157/81 97 06/26/17 08:51 20 06/26/17 06:00 98.2 F 78 20 181/86 95 06/26/17 00:09 98.1 F 69 18 157/68 96 06/25/17 22:00 98.3 F 75 18 171/81 96 06/25/17 21:00 70 16 06/25/17 18:55 99.2 F 79 18 151/78 95 06/25/17 14:00 98.1 F 76 18 158/89 97 06/25/17 10:30 76 18 - General General Appearance: Alert, Oriented x3, Cooperative, Mild distress Limitations: No limitations - Head Head exam: Normal inspection - Eye Eye exam: Normal appearance, PERRL, EOMI Pupils: Normal accommodation - ENT ENT exam: Normal exam, Mucous membranes moist, Normal external ear exam, Normal orophraynx Ear exam: Normal external inspection. negative: External canal tenderness Nasal Exam: Normal inspection. negative: Discharge, Sinus tenderness Mouth exam: Normal external inspection, Tongue normal Teeth exam: Normal inspection. negative: Dental caries Throat exam: Normal inspection. negative: Tonsillar erythema, Tonsillar exudate - Neck Neck exam: Normal inspection, Full ROM. negative: Tenderness - Respiratory Respiratory exam: Normal lung sounds bilaterally. negative: Respiratory distress - Cardiovascular Cardiovascular Exam: Regular rate, Normal rhythm, Normal heart sounds, S3 Peripheral Pulses: 2+: Radial (R), Radial (L), Dorsalis Pedis (R), Dorsalis Pedis (L) - GI/Abdominal GI/Abdominal exam: Soft, Normal bowel sounds. negative: Tenderness - Rectal Rectal exam: Deferred - exam: Deferred - Extremities Extremities exam: Normal inspection, Full ROM, Normal capillary refill. negative: Tenderness - Back Back exam: Reports: Normal inspection, Full ROM. Denies: Muscle spasm, Rash noted, Tenderness - Neurological Neurological exam: Alert, CN II-XII intact, Normal gait, Oriented X3 - Psychiatric Psychiatric exam: Normal affect, Normal mood - Skin Skin exam: Dry, Intact, Normal color, Warm Hospitalization - Hospitalization Admission Diagnosis: intractable vertigo, vomiting, uti, hyperglycemia w dm - Problem List/Discharge Diagnosis (1) Dizziness, nonspecific Plan: - Patient presents with dizziness, N/V, diarrhea. -resolved. Probably multifactorial 2/2 medication,infection,hyperglycemia - now resolved - CT head w/o contrast: no acute process, ECG: NSR, Qtc is mildly prolonged > 485 - D/C Nacl 0.9% @ 100mL/hr as pt on Po meds. - will d/c antivert, resume BP medications with holding parameters and continue to monitor on telemetry. - Fall precautions/ambulate with assistance Current Visit: Yes Status: Acute Base Code: R42 - DIZZINESS AND GIDDINESS (2) UTI (urinary tract infection) Plan: - UA: + nitrites, no leukocytes, trace ketones, trace proteins - pt on Ciprofloxacin 500mg BID x 2 more days, UCX shows coliform > 100K Current Visit: Yes Status: Acute Discharge Diagnosis: Urinary tract infection type: acute cystitis Hematuria presence: without hematuria Qualified Code(s): N30.00 - Acute cystitis without hematuria Base Code: N39.0 - URINARY TRACT INFECTION, SITE NOT SPECIFIED (3) Hypertension Plan: - pt on Diazyde, Lasix 20mg QD and Lisinopril 20mg at home. - resume Diayzide with review of dose before d/c increase Lisinopril to 40mg, cont Lasix 20mg. Current Visit: Yes Status: Acute Base Code: I10 - ESSENTIAL (PRIMARY) HYPERTENSION (4) Hyperglycemia due to type 2 diabetes mellitus Plan: - CBG >300 on admission, CBG 213, --> 300 recently 2/2 non-compliance and infection. - increased Levemir 84 units to 90 units Aspart 15 units TIDAC to 18 units and Metformin 1000mg BID - cont CBG TIDAC, diabetic diet. Pt has not been compliant and has been getting food from family that are not consistent with ADA diet. It was discovered that she was on wrong diet here in hospital. - CBG this morning - 66, given crackers and improved to 99. Will reduce insulin to home doses. Current Visit: Yes Status: Acute Discharge Diagnosis: Diabetes mellitus keno terminal operator insulin use: with [facility] use Qualified Code( s): E11.65 - Type 2 diabetes mellitus with hyperglycemia; Z79.4 - terminal operations supervisor ( current) use of insulin; Z79.4 - terminal operations supervisor (current) use of insulin; Z79.4 - residential (current) use of insulin; Z79.4 - terminal operations supervisor (current) use of insulin Base Code: E11.65 - TYPE 2 DIABETES MELLITUS WITH HYPERGLYCEMIA (5) Full code status Current Visit: Yes Status: Acute Base Code: Z78.9 - OTHER SPECIFIED HEALTH STATUS - Disposition D/C tomorrow if CBG improves tonight and in the morning. The patient's diet has been changed as per dietary. - Hospitalization Course Disposition: Home, Self-Care Hospital Course: 71 y/o female who presented with dizziness. Initial workup revealed UTI and the patient was started on IV Ciprofloxacin which was eventually changed to PO. Her dizziness is considered multifactorial due to poorly controlled DM, polypharmacy and UTI. We held her diazyde and started the patient on antivert. While her dizziness improved we noted on labs that the patient continued to be hyperglycemic despite receiving insulin. HEr basal and meal time doses were increased but still there was no significant change in CBG. Itwas discovered that the patient had not been complaint with diet andwas receiving foods which could cause sustained elevations in blood glucose. This having been addressed, the patient's CBG this morning was 66 and she was given crackers which improved her levels to 99. On examination this morning the patient is awake, alert and oriented. She is no acute distress and vitals are stable. Abnormal Labs: Abnormal Lab Results 06/24/17 06/24/17 06/24/17 Range/Units 07:00 11:58 17:00 MCHC (32-36) g/dl MPV (7.4-10.4) fl Carbon Dioxide (22-29) mmol/L POC Glucose 213 H 440 H 361 H (70-110) mg/dL Random Glucose (74-109) mg/dL 06/24/17 06/25/17 06/25/17 Range/Units 21:41 07:31 11:35 MCHC (32-36) g/dl MPV (7.4-10.4) fl Carbon Dioxide (22-29) mmol/L POC Glucose 354 H 342 H 404 H (70-110) mg/dL Random Glucose (74-109) mg/dL 06/25/17 06/25/17 06/26/17 Range/Units 17:00 22:00 06:23 MCHC 31.9 L (32-36) g/dl MPV 12.8 H (7.4-10.4) fl Carbon Dioxide (22-29) mmol/L POC Glucose 316 H 327 H (70-110) mg/dL Random Glucose (74-109) mg/dL 06/26/17 Range/Units 06:23 MCHC (32-36) g/dl MPV (7.4-10.4) fl Carbon Dioxide 30.0 H (22-29) mmol/L POC Glucose (70-110) mg/dL Random Glucose 66 L (74-109) mg/dL Discharge Medications - Discharge Medications Prescriptions: Lisinopril 40 mg PO DAILY #30 tab Home Medications: Ambulatory Orders Citalopram Hydrobromide [Celexa] 40 mg PO DAILY 04/14/15 [Last Taken 1 Day Ago ~ 05/03/17] Furosemide [Lasix] 40 mg PO Q48H 04/14/15 [Last Taken 1 Day Ago ~05/03/17] Insulin Glargine,Hum.rec.anlog [Lantus] 84 unit SQ QHS 04/14/15 [Last Taken 1 Day Ago ~05/03/17] Insulin Lispro [Humalog] 15 unit SQ TID 04/14/15 [Last Taken 1 Day Ago ~05/03/17 ] Metformin HCl 1,000 mg PO BID 04/14/15 [Last Taken 1 Day Ago ~05/03/17] Potassium Bicarbonate/Cit AC [Effer-K 10 Meq Tablet Eff] 10 meq PO DAILY [Last Taken 1 Day Ago ~05/03/17] Triamterene/Hydrochlorothiazid [Triamterene-Hctz 37.5-25 mg Tb] 1 each PO DAILY 04/14/15 [Last Taken 1 Day Ago ~05/03/17] Acetaminophen [Tylenol 500Mg Tab] 1,000 mg PO Q6H PRN 06/26/17 [Last Taken Unknown] Citalopram Hydrobromide [Celexa] 40 mg PO DAILY 06/26/17 [Last Taken Unknown] Lisinopril 40 mg PO DAILY #30 tab 06/26/17 [Last Taken Unknown] Discharge Plan - Discharge Instructions Activity at Discharge: Resume Usual Activities As Tolerated Diet at Discharge: Regular Diet Quality Measures - Quality Measures Quality Measures: Advance Directives, Documentation of Current Medications in Medical Record, Elder Maltreatment Screen and Follow-Up Plan, Screening for High Blood Pressure and F/U Documented - Current Medications Quality Measure: Measure #130: Documentation of Current Medications Documentation of Current Medications: <Current Medications Documented/Reviewed> [[id number]] - Blood Pressure Screening Quality Measure: Screening for High Blood Pressure and Follow-Up Documented Does Patient Have Any of the Following: Active Dx of HTN Blood Pressure Classification: Pre-Hypertensive BP Reading Systolic Measurement: 157 Diastolic Measurement: 81 Screening for High Blood Pressure: Patient Exclusion, Hx of HTN [G9744] - Advance Directives Quality Measure: Measure #47: Care Plan Advance Directives Established: No Advance Directives Information Provided To Patient: Yes Advance Directives on File: No Living Will: No Power of Business Office Manager: No Advance Care Planning: <Care Plan/Decision Maker Documented; Discussed & Documented> [7703F] - Elder Abuse Suspicion Index Screening: Elder Abuse Suspicion Index Screening Rely on people for bathing, dressing, shopping, banking, etc: No Prevented from getting food, clothes, medication, etc: No Made to feel shamed or threatened by someone: No Feel afraid, touched in ways not wanted or hurt physically: No Poor eye contact, withdrawn, malnourished, cuts or bruises: No Screening Result: Negative result EASI Reference Information: Heather MARTINI, Tim C, Riaz D, Diogo Hastings.Development and validation of a tool to assist physicians identification of elder abuse: The Elder Abuse Suspicion Index (EASI ). Journal of Elder Abuse and Neglect, 2008; 20 (3): 276-300. - Elder Maltreatment Screen Quality Measures: Elder Maltreatment Screen and Follow-Up Plan Elder Maltreatment Screen: <Negative, No Follow-Up Plan Required> [[id number]]
[2017-06-26] MEDS: FUROSEMIDE 40 MG TABLET PO SCH (10:36)
[2017-06-26] MEDS: METFORMIN 500 MG TABLET PO SCH (10:36)
[2017-06-26] MEDS: CIPROFLOXACIN HCL 500 MG TABLET PO SCH (10:36)
[2017-06-26] MEDS: CITALOPRAM 20 MG TABLET PO SCH (10:36)
[2017-06-26] MEDS: POTASSIUM CHLORIDE 10 MEQ TAB PO SCH (10:37)
[2017-06-26] MEDS: LISINOPRIL 20 MG TABLET PO SCH (10:37)
[2017-06-26] MEDS: TRIAMTERENE 37.5/HCTZ 25 CAPSULE PO SCH (10:37)
[2017-06-26] MEDS ORDERED: NOVOLOG FLEXPEN (INSULIN ASPART) 100 UNITS/ML SQ ONE (12:13)
[2017-06-26] MEDS ORDERED: TRIAMTERENE 37.5/HCTZ 25 CAPSULE PO ONE (12:58)
== END 2017-06-26 14:15 | disposition home or self-care (01) ==
LOC: ER 19:53 → MEDSURG 06-24 01:44
PROVIDERS: ADMIT Internal Medicine; ATTEND Internal Medicine
DX: I10 Essential (primary) hypertension (principal); E78.00 Pure hypercholesterolemia, unspecified; E11.9 Type 2 diabetes mellitus without complications; Z79.4 Long term (current) use of insulin; N39.0 Urinary tract infection, site not specified; B96.20 Unspecified Escherichia coli [E. coli] as the cause of diseases classified elsewhere
CPT/HCPCS: 99285 ×2; 96365; 96375; 82800; 85025 ×2; 84484; 80048 ×2; 36416 ×4; 81001; 83036; 82948 ×4; 70450; 93005; 93010; G0378 ×3; J0744 ×3; J2405; J1815 ×2; 99217; 99220; 99226; J2550; J7030

== ENCOUNTER 2017-08-12 12:47 | Emergency (ER) | payer MEDICARE ==
[2017-08-12 13:10] LABS: BASO % 0.2 % (0-6); EOS % 0.9 % (0-6); GRAN % 75.8 % (47-80); HEMATOCRIT 44.6 % (35.0-47.0); LYMPH % 18.9 % (16-45); MEAN CELL VOLUME 92.9 fl (81-97); MEAN CORPUSCULAR HEMOGLOBIN 29.2 pg (27-33); MEAN CORPUSCULAR HGB CONC 31.4 g/dl (32-36); MEAN PLATELET VOLUME 12.7 fl (7.4-10.4); MONO % 4.2 % (0-9); PLATELET COUNT 222 K/uL (130-400); WHITE BLOOD COUNT W/O DIFF 10.2 K/uL (4.2-12.2)
--- NOTE | 2017-08-12 13:33 | Emergency Department Record ---
History of Present Illness - General Chief complaint: Hypogylcemia Stated complaint: LOW BLOOD SUGAR Time Seen by Provider: 08/12/17 12:58 Mode of Arrival: EMS - History of Present Illness Initial comments: Patient confused and known diabetic and EMS called because of confusion and her glucose this AM 29 by EMS and yesterday am glucose 44 and she refused the transport yesterday. Last night she gave herself 15 units of novolog and lantus 90 units. Normally she uses lantus 90 units at night and currently she is using novolog 15 units per meal. She doesn't recall her balancing scale. -: Unknown Improves with: None Worsens with: None Associated Symptoms: Denies other symptoms - Mari Coma Scale Eye Response: (4) Open spontaneously Motor Response: (6) Obeys commands Verbal Response: (5) Oriented Munday Total: 15 - Related Data Home Medications Medication Instructions Recorded Confirmed Last Taken Lisinopril 20 mg PO DAILY 08/12/17 08/12/17 08/11/17 Potassium Chloride 10 meq PO BID 08/12/17 08/12/17 08/11/17 Simvastatin 20 mg PO DAILY 08/12/17 08/12/17 08/11/17 Previous Rx's Medication Instructions Recorded Citalopram Hydrobromide [Celexa] 40 mg PO DAILY 06/26/17 Allergies Allergy/AdvReac Type Severity Reaction Status Date / Time codeine Allergy Unknown PT UNSURE Verified 08/12/17 12:53 OF REACTION Travel Screening - Travel/Exposure Within Last 30 Days Have you traveled within the last 30 days?: No Review of Systems Reviewed: No additional complaints except as noted below Constitutional: Reports: As per HPI. Denies: Chills, Fever, Malaise, Night sweats, Weakness, Weight change Eyes: Reports: As per HPI. Denies: Eye discharge, Eye pain, Photophobia, Vision change ENT: Reports: As per HPI. Denies: Congestion, Dental pain, Ear pain, Epistaxis , Hearing loss, Throat pain Respiratory: Reports: As per HPI. Denies: Cough, Dyspnea, Hemoptysis, Stridor, Wheezes Cardiovascular: Reports: As per HPI. Denies: Arrhythmia, Chest pain, Dyspnea on exertion, Edema, Murmurs, Orthopnea, Palpitations, Paroxysmal nocturnal dyspnea, Rheumatic Fever, Syncope Endocrine: Reports: As per HPI. Denies: Fatigue, Heat or cold intolerance, Polydipsia, Polyuria Gastrointestinal: Reports: As per HPI. Denies: Abdominal pain, Constipation, Diarrhea, Hematemesis, Hematochezia, Melena, Nausea, Vomiting Genitourinary: Reports: As per HPI. Denies: Abnormal menses, Discharge, Dyspareunia, Dysuria, Frequency, Hematuria, Incontinence, Retention, Urgency Musculoskeletal: Reports: As per HPI. Denies: Arthralgia, Back pain, Gout, Joint swelling, Myalgia, Neck pain Skin: Reports: As per HPI. Denies: Bruising, Change in color, Change in hair/ nails, Lesions, Pruritus, Rash Neurological: Reports: As per HPI. Denies: Abnormal gait, Confusion, Headache, Numbness, Paresthesias, Seizure, Tingling, Tremors, Vertigo, Weakness Psychiatric: Reports: As per HPI. Denies: Anxiety, Auditory hallucinations, Depression, Homicidal thoughts, Suicidal thoughts, Visual hallucinations Hematological/Lymphatic: Reports: As per HPI. Denies: Anemia, Blood Clots, Easy bleeding, Easy bruising, Swollen glands Past Medical History - SOCIAL HISTORY Smoking Status: Never smoker Alcohol Use: None Drug Use: None - RESPIRATORY Hx Respiratory Disorders: No - CARDIOVASCULAR Hx Cardio Disorders: Yes Hx Edema: Yes (BLE) Hx Hypertension: Yes Comment:: high cholesterol - NEURO Hx Neuro Disorders: Yes Hx Dizziness: Yes (Vertigo) - GI Hx GI Disorders: Yes Hx Irritable Bowel: Yes - Hx Genitourinary Disorders: No - ENDOCRINE Hx Endocrine Disorders: Yes Hx Diabetes: Yes (DM2) - MUSCULOSKELETAL Hx Musculoskeletal Disorders: No - PSYCH Hx Psych Problems: Yes Hx Depression: Yes - HEMATOLOGY/ONCOLOGY Hx Hematology/Oncology Disorders: No Family Medical History Any Significant Family History?: Yes Hx Diabetes: Father, Brother/Sister, Grandparents Hx Heart Disease: Mother *Heart Comment: MD Physical Exam - General General Appearance: Alert, Oriented x3, Cooperative, Mild distress - Head Head exam: Normal inspection - Eye Eye exam: Normal appearance, PERRL Pupils: Normal accommodation - ENT ENT exam: Normal exam, Mucous membranes moist, Normal external ear exam, Normal orophraynx, TM's normal bilaterally Ear exam: Normal external inspection. negative: External canal tenderness Nasal Exam: Normal inspection. negative: Discharge, Sinus tenderness Mouth exam: Normal external inspection, Tongue normal Teeth exam: Normal inspection. negative: Dental caries Throat exam: Normal inspection. negative: Tonsillar erythema, Tonsillar exudate - Neck Neck exam: Normal inspection, Full ROM. negative: Tenderness - Respiratory Respiratory exam: Normal lung sounds bilaterally. negative: Respiratory distress - Cardiovascular Cardiovascular Exam: Regular rate, Normal rhythm, Normal heart sounds - GI/Abdominal GI/Abdominal exam: Soft, Normal bowel sounds. negative: Tenderness - Rectal Rectal exam: Deferred - exam: Deferred - Extremities Extremities exam: Normal inspection, Full ROM, Normal capillary refill. negative: Tenderness - Back Back exam: Reports: Normal inspection, Full ROM. Denies: Muscle spasm, Rash noted, Tenderness - Neurological Neurological exam: Alert, Normal gait, Oriented X3, Reflexes normal - Psychiatric Psychiatric exam: Normal affect, Normal mood - Skin Skin exam: Dry, Intact, Normal color, Warm Course Vital Signs 08/12/17 12:49 Temperature 98.2 F Pulse Rate 88 Respiratory 20 Rate Blood Pressure 167/85 Pulse Ox 97 - Reevaluation(s) Reevaluation #1: sons present and went over managing her diabetes. Marie. 08/12/17 13:35 Reevaluation #2: patient ate a meal and feeling better. Talked to daughter and son about her insulin and gave her a scale one unit for every 20 mg over 200 of humalog and decrease lantus to 45 units at night. 08/12/17 14:47 Medical Decision Making - Lab Data Result diagrams: 08/12/17 12:55 08/12/17 12:55 Lab Results 08/12/17 08/12/17 Range/Units 12:55 12:59 WBC 10.2 (4.2-12.2) K/uL RBC 4.80 (3.80-5.40) M/uL Hgb 14.0 (11.6-16.0) gm/dl Hct 44.6 (35.0-47.0) % MCV 92.9 (81-97) fl MCH 29.2 (27-33) pg MCHC 31.4 L (32-36) g/dl RDW 14.0 (11.5-14.5) % Plt Count 222 (130-400) K/uL MPV 12.7 H (7.4-10.4) fl Gran % 75.8 (47-80) % Lymphocytes % 18.9 (16-45) % Monocytes % 4.2 (0-9) % Eosinophils % 0.9 (0-6) % Basophils % 0.2 (0-6) % POC Glucose 131 H (70-110) mg/dL Disposition Clinical Impression: Hypoglycemia Diabetes mellitus Qualifiers: Diabetes mellitus type: type 2 Diabetes mellitus complication status: without complication Diabetes mellitus retirement insulin use: with retirement use Qualified Code(s): E11.9 - Type 2 diabetes mellitus without complications Disposition: Home, Self-Care Condition: (1) Good Additional Instructions: decrease lantus to 45 units at night and expect the sugars to be higher Humalog insulin 15 units per each meal and balance with scale of one unit of humalog insulin for every 20 over 200. No short acting novolog at bedtime just lantus. Check your sugars four times a day Continue eating as you are eating now. Forms: Patient Portal Access Time of Disposition: 14:48 Quality - Quality Measures Quality Measures: N/A - Blood Pressure Screening Does Patient Have Any of the Following: No Blood Pressure Classification: Pre-Hypertensive BP Reading Systolic Measurement: 167 Diastolic Measurement: 85 Screening for High Blood Pressure: Patient Exclusion, Hx of HTN [[id number]]
[2017-08-12 13:42] LABS: BLOOD UREA NITROGEN 19 mg/dL (8-23); CREATININE 0.8 mg/dL (0.5-0.9); EST GLOMERULAR FILTRATION RATE > 60 mL/min; GLUCOSE,RANDOM 133 mg/dL (74-109)
[2017-08-12 13:57] LABS: ALBUMIN 4.1 g/dL (4.0-5.0); ALKALINE PHOSPHATASE 72 U/L (35-104); ALT/SGPT 19 U/L (<33); AST/SGOT 21 U/L (10.0-35.0); TOTAL PROTEIN 7.2 g/dL (6.6-8.7)
[2017-08-12 14:01] LABS: BILIRUBIN,DIRECT < 0.2 mg/dL (0-0.3)
== END 2017-08-12 15:27 | disposition home or self-care (01) ==
LOC: ER 12:47
DX: E11.649 Type 2 diabetes mellitus with hypoglycemia without coma (principal); R41.0 Disorientation, unspecified; I10 Essential (primary) hypertension; Z79.4 Long term (current) use of insulin
CPT/HCPCS: 36416; 80048; 80076; 82948; 85025; 99283